=== PATIENT | male | born 1970 | race Caucasian/White ===

== ENCOUNTER 2021-05-06 16:00 | Inpatient (IN) | payer OTHER ==
[~2021-05-06] VITALS: Ht 180.3 cm; Wt 83.6 kg
--- NOTE | 2021-05-06 16:16 | NUR ---
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
--- NOTE | 2021-05-06 16:44 | NUR ---
FIRST CONTACT: SOB and non-productive cough for a few days, +COVID.R-sided CP. pt has not had COVID vaccine. PT WITH STEADY GAIT TO ROOM. POSITIONED TO COMFORT IN BED. ATTACHED TO MONITORS. VSS. COOK.
[2021-05-06] MEDS ORDERED: ASPIRIN 81 MG TABLET CHEW ONE (17:19)
[2021-05-06] MEDS ORDERED: DEXAMETHASONE 4 MG/ML, 1ML ONE (17:19)
--- NOTE | 2021-05-06 17:27 | NUR ---
pt medicated per emar. vss.nadn. no blood cultures per .
[2021-05-06] MEDS ORDERED: DEXAMETHASONE 4 MG/ML, 1ML IVPush ONE (17:30)
[2021-05-06] MEDS ORDERED: ASPIRIN 81 MG TABLET CHEW PO ONE (17:30)
[2021-05-06] MEDS ORDERED: AZITHROMYCIN 500 MG in SODIUM CHLORIDE 0.9% 250 ML IVPB ONE (17:30)
[2021-05-06] MEDS ORDERED: SODIUM CHLORIDE FLUSH 10ML SYR IVF ONE (17:30)
[2021-05-06 17:34] LABS: BASOPHILS % (AUTO) 0 % (0-1); EOSINOPHILS % (AUTO) 0 % (1-7); LYMPHOCYTES % (AUTO) 9 % (22-44); MEAN CORPUSCULAR HEMOGLOBIN 30.8 pg (27.5-34.5); MEAN CORPUSCULAR HGB CONC 35.9 g/dL (33.2-36.2); MEAN PLATELET VOLUME 9.1 fL (7.4-10.4); MONOCYTES % (AUTO) 5 % (2-9); NEUTROPHILS % (AUTO) 87 % (42-75); PLATELET COUNT 158 x10^3/uL (130-400); RED CELL DISTRIBUTION WIDTH 13.1 % (9.4-14.8)
[2021-05-06 17:42] LABS: ALBUMIN 2.7 g/dL (3.4-5.0); ANION GAP 14 mmol/L (5-15); CALCIUM 8.4 mg/dL (8.5-10.1); CHLORIDE 94 mmol/L (98-107); CREATININE 1.12 mg/dL (0.7-1.3)
--- NOTE | 2021-05-06 18:49 | NUR ---
REPORT TO SHENG AMBROCIO.
[2021-05-06] MEDS ORDERED: SODIUM CHLORIDE FLUSH 10ML SYR IVF PRN (19:00)
[2021-05-06] MEDS ORDERED: POLYETHYLENE GLYCOL 17 GM PACKET PO PRN (19:00)
[2021-05-06] MEDS ORDERED: PHARMACY MAY ADJ FOR RENAL FX MC PRN (19:00)
[2021-05-06] MEDS ORDERED: LABETALOL 5MG/ML, 20ML IVPush PRN (19:00)
[2021-05-06] MEDS ORDERED: POTASSIUM CHLORIDE 20 MEQ TAB.ER.PRT PO ONE ×2 (19:00→21:30)
[2021-05-06] MEDS ORDERED: ONDANSETRON 2MG/ML, 2ML IVPush PRN (19:00)
--- NOTE | 2021-05-06 19:18 | NUR ---
RECIEVED REPORT FROM LOLLY SAMAYOA. FIRST CONTACT WITH PT. NADN. SANON. PT RESTING COMFORTABLY ON 6L NC WITH O2 93%. PT AWAITING ADMISSION.
--- NOTE | 2021-05-06 19:24 | NUR ---
1ST ATTEMPT TO CALL REPORT. WILL CALL BACK
--- NOTE | 2021-05-06 19:58 | NUR ---
OXI MASK PLACED ON PT WITH NO CHANGE IN OXIGENATION. PT REPORTS HE IS MORE COMFORTABLE ON NC. PT O2 PRIOR TO ADMISSION 93% ON 6L
[2021-05-06 20:20] VITALS: BP 106/68
[2021-05-06] MEDS: FAMOTIDINE 20 MG TABLET PO SCH (20:27)
[2021-05-06] MEDS: ASCORBIC ACID 500 MG TABLET PO SCH (20:27)
[2021-05-06] MEDS: ENOXAPARIN 40 MG/0.4 ML SQ SCH (20:28)
[2021-05-06] MEDS ORDERED: MELATONIN 5 MG TABLET PO PRN (21:00)
[2021-05-06] MEDS ORDERED: POTASSIUM CHLORIDE 40 MEQ in SODIUM CHLORIDE 0.9% 500 ML IV ONE (21:20)
[2021-05-06] MEDS: DEXAMETHASONE 4 MG/ML, 1ML IVPush SCH (22:09)
[2021-05-07 00:54] VITALS: BP 108/71
[2021-05-07] MEDS: DEXAMETHASONE 4 MG/ML, 1ML IVPush SCH ×3 (05:51→17:48)
[2021-05-07 05:58] LABS: BASOPHILS % (AUTO) 0 % (0-1); EOSINOPHILS % (AUTO) 0 % (1-7); LYMPHOCYTES % (AUTO) 17 % (22-44); MEAN CORPUSCULAR HEMOGLOBIN 30.7 pg (27.5-34.5); MEAN CORPUSCULAR HGB CONC 35.4 g/dL (33.2-36.2); MEAN PLATELET VOLUME 8.9 fL (7.4-10.4); MONOCYTES % (AUTO) 8 % (2-9); NEUTROPHILS % (AUTO) 75 % (42-75); PLATELET COUNT 182 x10^3/uL (130-400); RED BLOOD COUNT 5.08 x10^6/uL (4.38-5.82)
[2021-05-07 06:09] LABS: ANION GAP 13 mmol/L (5-15); CALCIUM 8.3 mg/dL (8.5-10.1); CHLORIDE 100 mmol/L (98-107); CREATININE 1.15 mg/dL (0.7-1.3)
[2021-05-07 07:50] VITALS: BP 111/76
[2021-05-07] MEDS ORDERED: ZINC SULFATE 220 MG CAPSULE PO SCH (09:00)
[2021-05-07] MEDS: FAMOTIDINE 20 MG TABLET PO SCH ×2 (09:18→20:56)
[2021-05-07] MEDS: ASCORBIC ACID 500 MG TABLET PO SCH ×2 (09:18→20:55)
[2021-05-07 09:47] LABS: D-DIMER 0.91 ug/mlFEU (0.00-0.52)
[2021-05-07 10:01] LABS: C-REACTIVE PROTEIN, QUANT 5.5 mg/dL (0.02-0.49)
[2021-05-07] MEDS: INSULIN LISPRO 100 UNITS/ML, PEN SQ-INSULIN SCH ×3 (12:35→20:53)
[2021-05-07 13:27] VITALS: BP 116/74
[2021-05-07] MEDS: CEFTRIAXONE 2 GM in DEXTROSE 5% 50 ML IVPB SCH (14:38)
[2021-05-07 14:40] LABS: ALANINE AMINOTRANSFERASE 109 U/L (12-78); ALBUMIN 2.7 g/dL (3.4-5.0); ANION GAP 21 mmol/L (5-15); CALCIUM 9.1 mg/dL (8.5-10.1); CHLORIDE 101 mmol/L (98-107)
[2021-05-07 14:42] LABS: ALKALINE PHOSPHATASE 70 U/L (45-117); BILIRUBIN,TOTAL 1.1 mg/dL (0.2-1.0); TOTAL PROTEIN 7.5 g/dL (6.4-8.2)
[2021-05-07] MEDS: INSULIN GLARGINE 100 UNITS/ML, PEN SQ-INSULIN SCH ×2 (15:15→20:54)
[2021-05-07] MEDS ORDERED: REMDESIVIR 200 MG in SODIUM CHLORIDE 0.9% 250 ML IVPB ONE (16:00)
[2021-05-07] MEDS ORDERED: OMNIPAQUE 350 MG/ML, 100ML BOTTLE ONE (17:38)
[2021-05-07] MEDS: MELATONIN 5 MG TABLET PO SCH (20:55)
[2021-05-07] MEDS: ENOXAPARIN 40 MG/0.4 ML SQ SCH (20:56)
[2021-05-07] MEDS: THIAMINE 100MG TABLET PO SCH (20:56)
[2021-05-07] MEDS: DOXYCYCLINE 50 MG/5 ML ORAL SUSP PO SCH (20:56)
[2021-05-07] MEDS ORDERED: INSULIN LISPRO 100 UNITS/ML, PEN SQ-INSULIN ONE (21:00)
[2021-05-07 21:49] VITALS: BP 123/80
[2021-05-08] MEDS: DEXAMETHASONE 4 MG/ML, 1ML IVPush SCH ×5 (00:04→23:33)
[2021-05-08 06:28] VITALS: BP 112/75
[2021-05-08 07:44] LABS: BASOPHILS % (AUTO) 0 % (0-1); EOSINOPHILS % (AUTO) 0 % (1-7); LYMPHOCYTES % (AUTO) 9 % (22-44); MEAN CORPUSCULAR HEMOGLOBIN 31.1 pg (27.5-34.5); MEAN CORPUSCULAR HGB CONC 36.4 g/dL (33.2-36.2); MEAN PLATELET VOLUME 8.7 fL (7.4-10.4); MONOCYTES % (AUTO) 7 % (2-9); NEUTROPHILS % (AUTO) 84 % (42-75); PLATELET COUNT 224 x10^3/uL (130-400); RED BLOOD COUNT 5.29 x10^6/uL (4.38-5.82); RED CELL DISTRIBUTION WIDTH 12.9 % (9.4-14.8)
[2021-05-08 07:55] LABS: ALBUMIN 2.5 g/dL (3.4-5.0); ANION GAP 11 mmol/L (5-15); CALCIUM 9.1 mg/dL (8.5-10.1); CHLORIDE 106 mmol/L (98-107)
[2021-05-08 08:00] LABS: ALANINE AMINOTRANSFERASE 83 U/L (12-78); ALKALINE PHOSPHATASE 64 U/L (45-117); BILIRUBIN,TOTAL 0.9 mg/dL (0.2-1.0); CREATININE 0.85 mg/dL (0.7-1.3); TOTAL PROTEIN 6.6 g/dL (6.4-8.2)
[2021-05-08] MEDS ORDERED: INSULIN GLARGINE 100 UNITS/ML, PEN SQ-INSULIN SCH (09:00)
[2021-05-08] MEDS: INSULIN LISPRO 100 UNITS/ML, PEN SQ-INSULIN SCH ×4 (09:16→22:06)
[2021-05-08] MEDS: THIAMINE 100MG TABLET PO SCH ×2 (09:17→21:56)
[2021-05-08] MEDS: ASCORBIC ACID 500 MG TABLET PO SCH ×2 (09:17→21:56)
[2021-05-08] MEDS: ZINC SULFATE 220 MG CAPSULE PO SCH (09:17)
[2021-05-08] MEDS: DOXYCYCLINE 50 MG/5 ML ORAL SUSP PO SCH ×2 (09:17→21:56)
[2021-05-08] MEDS: CHOLECALCIFEROL 1,000 UNIT TABLET PO SCH (09:18)
[2021-05-08] MEDS: FAMOTIDINE 20 MG TABLET PO SCH ×2 (09:18→21:56)
[2021-05-08 13:11] VITALS: BP 137/72
[2021-05-08] MEDS: CEFTRIAXONE 2 GM in DEXTROSE 5% 50 ML IVPB SCH (15:10)
[2021-05-08] MEDS: REMDESIVIR 100 MG in SODIUM CHLORIDE 0.9% 250 ML IVPB SCH (16:18)
[2021-05-08 21:01] VITALS: BP 112/72
[2021-05-08] MEDS: MELATONIN 5 MG TABLET PO SCH (21:56)
[2021-05-08] MEDS: ENOXAPARIN 40 MG/0.4 ML SQ SCH (21:56)
[2021-05-09 02:17] VITALS: BP 112/66
[2021-05-09] MEDS: DEXAMETHASONE 4 MG/ML, 1ML IVPush SCH ×4 (05:51→23:56)
[2021-05-09 07:01] LABS: ALBUMIN 2.4 g/dL (3.4-5.0); ANION GAP 11 mmol/L (5-15); CHLORIDE 109 mmol/L (98-107)
[2021-05-09 07:06] LABS: ALANINE AMINOTRANSFERASE 76 U/L (12-78); ALKALINE PHOSPHATASE 67 U/L (45-117); BILIRUBIN,TOTAL 1.1 mg/dL (0.2-1.0); CREATININE 0.73 mg/dL (0.7-1.3); TOTAL PROTEIN 6.2 g/dL (6.4-8.2)
[2021-05-09 08:00] VITALS: BP 115/68
[2021-05-09] MEDS ORDERED: POTASSIUM CHLORIDE 20 MEQ TAB.ER.PRT PO ONE (08:00)
[2021-05-09] MEDS: DOXYCYCLINE 50 MG/5 ML ORAL SUSP PO SCH ×2 (08:50→20:56)
[2021-05-09] MEDS: ASCORBIC ACID 500 MG TABLET PO SCH ×2 (08:50→20:56)
[2021-05-09] MEDS: THIAMINE 100MG TABLET PO SCH ×2 (08:50→20:56)
[2021-05-09] MEDS: FAMOTIDINE 20 MG TABLET PO SCH ×2 (08:50→20:56)
[2021-05-09] MEDS: ZINC SULFATE 220 MG CAPSULE PO SCH (08:50)
[2021-05-09] MEDS: CHOLECALCIFEROL 1,000 UNIT TABLET PO SCH (08:51)
[2021-05-09] MEDS: INSULIN LISPRO 100 UNITS/ML, PEN SQ-INSULIN SCH ×4 (08:54→20:56)
[2021-05-09] MEDS: INSULIN GLARGINE 100 UNITS/ML, PEN SQ-INSULIN SCH ×2 (08:54→20:55)
[2021-05-09 14:58] VITALS: BP 128/77
[2021-05-09] MEDS: CEFTRIAXONE 2 GM in DEXTROSE 5% 50 ML IVPB SCH (15:01)
[2021-05-09] MEDS: REMDESIVIR 100 MG in SODIUM CHLORIDE 0.9% 250 ML IVPB SCH (16:38)
[2021-05-09] MEDS: GUAIFENESIN/DM 200-20MG, 10ML UDC PO SCH ×2 (16:53→23:56)
[2021-05-09 20:46] VITALS: BP 127/64
[2021-05-09] MEDS: GUAIFENESIN/COD200MG-20MG/10ML LIQUID PO SCH (20:56)
[2021-05-09] MEDS: ENOXAPARIN 40 MG/0.4 ML SQ SCH (20:58)
[2021-05-09] MEDS: MELATONIN 5 MG TABLET PO SCH (21:00)
[2021-05-10 01:10] VITALS: BP 112/77
[2021-05-10] MEDS: GUAIFENESIN/DM 200-20MG, 10ML UDC PO SCH ×4 (05:00→23:22)
[2021-05-10] MEDS: DEXAMETHASONE 4 MG/ML, 1ML IVPush SCH ×3 (05:23→20:34)
[2021-05-10] MEDS: GUAIFENESIN/COD200MG-20MG/10ML LIQUID PO SCH ×4 (05:23→20:34)
[2021-05-10 06:39] VITALS: BP 123/74
[2021-05-10 06:57] LABS: D-DIMER 3.2 ug/mlFEU (0.00-0.52)
[2021-05-10 06:59] LABS: ALBUMIN 2.4 g/dL (3.4-5.0); ANION GAP 8 mmol/L (5-15); CALCIUM 8.6 mg/dL (8.5-10.1); CHLORIDE 112 mmol/L (98-107)
[2021-05-10 07:09] LABS: BASOPHILS % (AUTO) 0 % (0-1); EOSINOPHILS % (AUTO) 0 % (1-7); LYMPHOCYTES % (AUTO) 4 % (22-44); MEAN CORPUSCULAR HEMOGLOBIN 30.2 pg (27.5-34.5); MEAN CORPUSCULAR HGB CONC 34.8 g/dL (33.2-36.2); MEAN PLATELET VOLUME 8.9 fL (7.4-10.4); MONOCYTES % (AUTO) 4 % (2-9); NEUTROPHILS % (AUTO) 91 % (42-75); PLATELET COUNT 266 x10^3/uL (130-400); RED BLOOD COUNT 5.36 x10^6/uL (4.38-5.82); RED CELL DISTRIBUTION WIDTH 13.2 % (9.4-14.8)
[2021-05-10 07:14] LABS: ALANINE AMINOTRANSFERASE 79 U/L (12-78); ALKALINE PHOSPHATASE 82 U/L (45-117); BILIRUBIN,TOTAL 1.2 mg/dL (0.2-1.0); CREATININE 0.77 mg/dL (0.7-1.3); TOTAL PROTEIN 6.3 g/dL (6.4-8.2)
[2021-05-10] MEDS: ASCORBIC ACID 500 MG TABLET PO SCH ×2 (08:13→20:34)
[2021-05-10] MEDS: THIAMINE 100MG TABLET PO SCH ×2 (08:14→20:34)
[2021-05-10] MEDS: CHOLECALCIFEROL 1,000 UNIT TABLET PO SCH (08:14)
[2021-05-10] MEDS: FAMOTIDINE 20 MG TABLET PO SCH ×2 (08:14→20:34)
[2021-05-10] MEDS: INSULIN LISPRO 100 UNITS/ML, PEN SQ-INSULIN SCH ×4 (08:16→20:33)
[2021-05-10] MEDS: INSULIN GLARGINE 100 UNITS/ML, PEN SQ-INSULIN SCH ×2 (08:16→20:32)
[2021-05-10] MEDS: ZINC SULFATE 220 MG CAPSULE PO SCH (10:19)
[2021-05-10] MEDS: DOXYCYCLINE 50 MG/5 ML ORAL SUSP PO SCH ×2 (10:19→20:31)
[2021-05-10 12:25] VITALS: BP 125/73
[2021-05-10] MEDS: CEFTRIAXONE 2 GM in DEXTROSE 5% 50 ML IVPB SCH (14:36)
[2021-05-10] MEDS: REMDESIVIR 100 MG in SODIUM CHLORIDE 0.9% 250 ML IVPB SCH (16:58)
[2021-05-10 20:30] VITALS: BP 137/84
[2021-05-10] MEDS: ENOXAPARIN 40 MG/0.4 ML SQ SCH (20:33)
[2021-05-10] MEDS: MELATONIN 5 MG TABLET PO SCH (20:34)
[2021-05-11] MEDS: DEXAMETHASONE 4 MG/ML, 1ML IVPush SCH ×2 (01:35→08:47)
[2021-05-11 01:46] VITALS: BP 121/78
[2021-05-11 04:13] LABS: CALCIUM 8.2 mg/dL (8.5-10.1); CHLORIDE 109 mmol/L (98-107)
[2021-05-11 04:18] LABS: ALANINE AMINOTRANSFERASE 81 U/L (12-78); ALKALINE PHOSPHATASE 73 U/L (45-117); ANION GAP 6 mmol/L (5-15); BILIRUBIN,TOTAL 0.9 mg/dL (0.2-1.0); CREATININE 0.59 mg/dL (0.7-1.3); TOTAL PROTEIN 5.8 g/dL (6.4-8.2)
[2021-05-11] MEDS: GUAIFENESIN/DM 200-20MG, 10ML UDC PO SCH (05:46)
[2021-05-11] MEDS: GUAIFENESIN/COD200MG-20MG/10ML LIQUID PO SCH ×4 (05:46→20:29)
[2021-05-11 08:36] VITALS: BP 131/75
[2021-05-11] MEDS: CHOLECALCIFEROL 1,000 UNIT TABLET PO SCH (08:46)
[2021-05-11] MEDS: THIAMINE 100MG TABLET PO SCH ×2 (08:47→20:28)
[2021-05-11] MEDS: ASCORBIC ACID 500 MG TABLET PO SCH ×2 (08:47→20:28)
[2021-05-11] MEDS: DOXYCYCLINE 50 MG/5 ML ORAL SUSP PO SCH (08:47)
[2021-05-11] MEDS: FAMOTIDINE 20 MG TABLET PO SCH ×2 (08:48→20:28)
[2021-05-11] MEDS: INSULIN GLARGINE 100 UNITS/ML, PEN SQ-INSULIN SCH (08:51)
[2021-05-11] MEDS: INSULIN LISPRO 100 UNITS/ML, PEN SQ-INSULIN SCH ×4 (08:53→20:27)
[2021-05-11 14:26] VITALS: BP 135/74
[2021-05-11] MEDS: CEFTRIAXONE 2 GM in DEXTROSE 5% 50 ML IVPB SCH (14:45)
[2021-05-11] MEDS: ZINC SULFATE 220 MG CAPSULE PO SCH (14:45)
[2021-05-11] MEDS: REMDESIVIR 100 MG in SODIUM CHLORIDE 0.9% 250 ML IVPB SCH (16:05)
[2021-05-11 19:27] VITALS: BP 132/81
[2021-05-11] MEDS: DOXYCYCLINE 100MG TABLET PO SCH (20:28)
[2021-05-11] MEDS: MELATONIN 5 MG TABLET PO SCH (20:28)
[2021-05-11] MEDS: ENOXAPARIN 40 MG/0.4 ML SQ SCH (20:29)
[2021-05-11] MEDS: DEXTROMETHORPHAN 30 MG/5 ML ORAL SOL PO SCH (20:29)
[2021-05-11] MEDS ORDERED: INSULIN GLARGINE 100 UNITS/ML, PEN SQ-INSULIN SCH (21:00)
[2021-05-12 00:55] VITALS: BP 143/92
[2021-05-12] MEDS: GUAIFENESIN/COD200MG-20MG/10ML LIQUID PO SCH ×4 (05:20→22:29)
[2021-05-12] MEDS: INSULIN LISPRO 100 UNITS/ML, PEN SQ-INSULIN SCH ×4 (07:00→22:31)
[2021-05-12 08:30] VITALS: BP 136/76
[2021-05-12] MEDS: CHOLECALCIFEROL 1,000 UNIT TABLET PO SCH (09:00)
[2021-05-12 09:15] LABS: D-DIMER 3.71 ug/mlFEU (0.00-0.52)
[2021-05-12 09:30] LABS: C-REACTIVE PROTEIN, QUANT 1.7 mg/dL (0.02-0.49)
[2021-05-12] MEDS: FAMOTIDINE 20 MG TABLET PO SCH ×2 (09:38→22:30)
[2021-05-12] MEDS: ASCORBIC ACID 500 MG TABLET PO SCH ×2 (09:38→22:29)
[2021-05-12] MEDS: DOXYCYCLINE 100MG TABLET PO SCH ×2 (09:39→22:30)
[2021-05-12] MEDS: THIAMINE 100MG TABLET PO SCH ×2 (09:39→22:30)
[2021-05-12] MEDS: DEXAMETHASONE 4 MG/ML, 1ML IVPush SCH (09:39)
[2021-05-12] MEDS: ZINC SULFATE 220 MG CAPSULE PO SCH (09:39)
[2021-05-12] MEDS: DEXTROMETHORPHAN 30 MG/5 ML ORAL SOL PO SCH ×2 (09:40→22:30)
[2021-05-12] MEDS: INSULIN GLARGINE 100 UNITS/ML, PEN SQ-INSULIN SCH ×2 (09:41→22:32)
[2021-05-12 14:12] VITALS: BP 150/79
[2021-05-12] MEDS: CEFTRIAXONE 2 GM in DEXTROSE 5% 50 ML IVPB SCH (15:39)
[2021-05-12] MEDS: REMDESIVIR 100 MG in SODIUM CHLORIDE 0.9% 250 ML IVPB SCH (16:37)
[2021-05-12 20:09] VITALS: BP 169/89
[2021-05-12] MEDS ORDERED: ASCORBIC ACID 250 MG TAB ONE (22:15)
[2021-05-12] MEDS: ENOXAPARIN 40 MG/0.4 ML SQ SCH (22:28)
[2021-05-12] MEDS: MELATONIN 5 MG TABLET PO SCH (22:30)
[2021-05-13 01:53] VITALS: BP 120/80
[2021-05-13 06:02] LABS: CHLORIDE 109 mmol/L (98-107)
[2021-05-13] MEDS: GUAIFENESIN/COD200MG-20MG/10ML LIQUID PO SCH ×4 (06:07→22:05)
[2021-05-13 06:09] LABS: ALANINE AMINOTRANSFERASE 98 U/L (12-78); ALBUMIN 2.2 g/dL (3.4-5.0); ALKALINE PHOSPHATASE 88 U/L (45-117); ANION GAP 6 mmol/L (5-15); CALCIUM 8.4 mg/dL (8.5-10.1); CREATININE 0.67 mg/dL (0.7-1.3); TOTAL PROTEIN 6.3 g/dL (6.4-8.2)
[2021-05-13] MEDS: INSULIN LISPRO 100 UNITS/ML, PEN SQ-INSULIN SCH ×4 (07:00→22:07)
[2021-05-13 08:24] VITALS: BP 136/80
[2021-05-13] MEDS: CHOLECALCIFEROL 1,000 UNIT TABLET PO SCH (09:00)
[2021-05-13] MEDS: ASCORBIC ACID 500 MG TABLET PO SCH ×2 (10:53→22:05)
[2021-05-13] MEDS: THIAMINE 100MG TABLET PO SCH ×2 (10:53→22:06)
[2021-05-13] MEDS: FAMOTIDINE 20 MG TABLET PO SCH ×2 (10:53→22:06)
[2021-05-13] MEDS: DEXAMETHASONE 4 MG/ML, 1ML IVPush SCH (10:53)
[2021-05-13] MEDS: DOXYCYCLINE 100MG TABLET PO SCH ×2 (10:53→22:06)
[2021-05-13] MEDS: DEXTROMETHORPHAN 30 MG/5 ML ORAL SOL PO SCH ×2 (13:03→22:05)
[2021-05-13] MEDS: ZINC SULFATE 220 MG CAPSULE PO SCH (13:03)
[2021-05-13] MEDS: INSULIN GLARGINE 100 UNITS/ML, PEN SQ-INSULIN SCH ×2 (13:04→22:07)
[2021-05-13 14:38] VITALS: BP 89/64
[2021-05-13 14:52] VITALS: BP 128/83
[2021-05-13] MEDS: CEFTRIAXONE 2 GM in DEXTROSE 5% 50 ML IVPB SCH (14:54)
[2021-05-13] MEDS: REMDESIVIR 100 MG in SODIUM CHLORIDE 0.9% 250 ML IVPB SCH (17:07)
[2021-05-13 20:34] VITALS: BP 127/81
[2021-05-13] MEDS: MELATONIN 5 MG TABLET PO SCH (22:06)
[2021-05-13] MEDS: ENOXAPARIN 40 MG/0.4 ML SQ SCH (22:06)
[2021-05-14 02:26] VITALS: BP 120/80
[2021-05-14] MEDS: GUAIFENESIN/COD200MG-20MG/10ML LIQUID PO SCH ×4 (05:38→21:06)
[2021-05-14 06:14] LABS: CHLORIDE 106 mmol/L (98-107)
[2021-05-14 06:25] LABS: ALANINE AMINOTRANSFERASE 82 U/L (12-78); ALBUMIN 1.8 g/dL (3.4-5.0); ALKALINE PHOSPHATASE 84 U/L (45-117); BILIRUBIN,TOTAL 0.9 mg/dL (0.2-1.0); TOTAL PROTEIN 5.4 g/dL (6.4-8.2)
[2021-05-14 06:51] LABS: ANION GAP 5 mmol/L (5-15); CALCIUM 8.3 mg/dL (8.5-10.1); CREATININE 0.61 mg/dL (0.7-1.3)
[2021-05-14] MEDS: INSULIN LISPRO 100 UNITS/ML, PEN SQ-INSULIN SCH ×4 (07:00→21:10)
[2021-05-14 08:31] VITALS: BP 129/82
[2021-05-14] MEDS: FAMOTIDINE 20 MG TABLET PO SCH ×2 (08:38→21:06)
[2021-05-14] MEDS: DEXAMETHASONE 4 MG/ML, 1ML IVPush SCH (08:38)
[2021-05-14] MEDS: ASCORBIC ACID 500 MG TABLET PO SCH ×2 (08:38→21:06)
[2021-05-14] MEDS: DOXYCYCLINE 100MG TABLET PO SCH ×2 (08:38→21:06)
[2021-05-14] MEDS: CHOLECALCIFEROL 1,000 UNIT TABLET PO SCH (08:39)
[2021-05-14] MEDS: THIAMINE 100MG TABLET PO SCH ×2 (08:39→21:06)
[2021-05-14] MEDS: FUROSEMIDE 20 MG/2 ML IV SCH ×2 (08:39→16:50)
[2021-05-14] MEDS: INSULIN GLARGINE 100 UNITS/ML, PEN SQ-INSULIN SCH ×2 (08:45→21:10)
[2021-05-14] MEDS: DEXTROMETHORPHAN 30 MG/5 ML ORAL SOL PO SCH ×2 (08:46→21:06)
[2021-05-14] MEDS: ZINC SULFATE 220 MG CAPSULE PO SCH (11:21)
[2021-05-14 14:05] VITALS: BP 136/78
[2021-05-14] MEDS: CEFTRIAXONE 2 GM in DEXTROSE 5% 50 ML IVPB SCH (14:56)
[2021-05-14] MEDS: REMDESIVIR 100 MG in SODIUM CHLORIDE 0.9% 250 ML IVPB SCH (16:50)
[2021-05-14 18:51] VITALS: BP 103/64
[2021-05-14] MEDS: MELATONIN 5 MG TABLET PO SCH (21:06)
[2021-05-14] MEDS: ENOXAPARIN 40 MG/0.4 ML SQ SCH (21:08)
[2021-05-15 01:47] VITALS: BP 110/72
[2021-05-15] MEDS: GUAIFENESIN/COD200MG-20MG/10ML LIQUID PO SCH ×4 (04:56→21:22)
[2021-05-15] MEDS: INSULIN LISPRO 100 UNITS/ML, PEN SQ-INSULIN SCH ×4 (07:00→21:25)
[2021-05-15 07:43] VITALS: BP 109/65
[2021-05-15] MEDS: FUROSEMIDE 20 MG/2 ML IV SCH ×2 (08:15→16:31)
[2021-05-15 08:44] LABS: MEAN CORPUSCULAR HEMOGLOBIN 30.3 pg (27.5-34.5); MEAN CORPUSCULAR HGB CONC 34.1 g/dL (33.2-36.2); MEAN PLATELET VOLUME 8.6 fL (7.4-10.4); PLATELET COUNT 360 x10^3/uL (130-400); RED BLOOD COUNT 5.53 x10^6/uL (4.38-5.82); RED CELL DISTRIBUTION WIDTH 13.2 % (9.4-14.8)
[2021-05-15 08:55] LABS: ALBUMIN 2.4 g/dL (3.4-5.0); ANION GAP 9 mmol/L (5-15); CALCIUM 8.9 mg/dL (8.5-10.1); CHLORIDE 102 mmol/L (98-107)
[2021-05-15 08:56] LABS: ALBUMIN 2.4 g/dL (3.4-5.0); ANION GAP 7 mmol/L (5-15); CALCIUM 9.3 mg/dL (8.5-10.1); CHLORIDE 102 mmol/L (98-107)
[2021-05-15 08:57] LABS: CREATININE 0.89 mg/dL (0.7-1.3)
[2021-05-15 08:58] LABS: ALANINE AMINOTRANSFERASE 111 U/L (12-78); ALKALINE PHOSPHATASE 92 U/L (45-117); BILIRUBIN,TOTAL 1.4 mg/dL (0.2-1.0); CREATININE 0.87 mg/dL (0.7-1.3); TOTAL PROTEIN 6.5 g/dL (6.4-8.2)
[2021-05-15 09:12] LABS: BAND#(MANUAL) 0.16 x10^3/uL; BANDS%(MANUAL) 1 % (0-7); LYMPHS% (MANUAL) 25 % (22-44); METAMYELOCYTES# (MANUAL) 0.16 x10^3/uL (0-0); METAMYELOCYTES% (MANUAL) 1 % (0-1); MONOS#(MANUAL) 1.15 x10^3/uL (0.3-2.7); MONOS% (MANUAL) 7 % (2-9); MYELOCYTES# (MANUAL) 0.16 x10^3/uL (0-0); MYELOCYTES% (MANUAL) 1 % (0-0); SEG#(MANUAL) 10.66 x10^3/uL (1.8-6.8); SEGS% (MANUAL) 65 % (42-75)
[2021-05-15 09:13] LABS: <PLATELET ESTIMATE> ADEQUATE; <PLT MORPHOLOGY> NORMAL PLT MORPH; <RBC MORPHOLOGY> NORMAL
[2021-05-15] MEDS: FAMOTIDINE 20 MG TABLET PO SCH ×2 (10:28→21:22)
[2021-05-15] MEDS: ASCORBIC ACID 500 MG TABLET PO SCH ×2 (10:28→21:21)
[2021-05-15] MEDS: THIAMINE 100MG TABLET PO SCH ×2 (10:28→21:22)
[2021-05-15] MEDS: CHOLECALCIFEROL 1,000 UNIT TABLET PO SCH (10:28)
[2021-05-15] MEDS: DOXYCYCLINE 100MG TABLET PO SCH ×2 (10:28→21:21)
[2021-05-15] MEDS: DEXTROMETHORPHAN 30 MG/5 ML ORAL SOL PO SCH ×2 (10:29→21:22)
[2021-05-15] MEDS: DEXAMETHASONE 4 MG/ML, 1ML IVPush SCH (10:30)
[2021-05-15] MEDS: INSULIN GLARGINE 100 UNITS/ML, PEN SQ-INSULIN SCH ×2 (10:42→21:25)
[2021-05-15] MEDS: ZINC SULFATE 220 MG CAPSULE PO SCH (10:46)
[2021-05-15 14:00] VITALS: BP 110/66
[2021-05-15] MEDS: CEFTRIAXONE 2 GM in DEXTROSE 5% 50 ML IVPB SCH (15:49)
[2021-05-15] MEDS: REMDESIVIR 100 MG in SODIUM CHLORIDE 0.9% 250 ML IVPB SCH (16:28)
[2021-05-15 19:58] VITALS: BP 113/66
[2021-05-15] MEDS: MELATONIN 5 MG TABLET PO SCH (21:00)
[2021-05-15] MEDS: ENOXAPARIN 40 MG/0.4 ML SQ SCH (21:22)
[2021-05-16 01:21] VITALS: BP 111/71
[2021-05-16 06:21] LABS: CHLORIDE 101 mmol/L (98-107)
[2021-05-16 06:27] LABS: ALANINE AMINOTRANSFERASE 89 U/L (12-78); ALBUMIN 2.1 g/dL (3.4-5.0); ALKALINE PHOSPHATASE 86 U/L (45-117); ANION GAP 5 mmol/L (5-15); CALCIUM 8.6 mg/dL (8.5-10.1); CREATININE 0.83 mg/dL (0.7-1.3)
[2021-05-16] MEDS: GUAIFENESIN/COD200MG-20MG/10ML LIQUID PO SCH ×4 (06:43→21:20)
[2021-05-16] MEDS: INSULIN LISPRO 100 UNITS/ML, PEN SQ-INSULIN SCH ×4 (07:00→21:21)
[2021-05-16 08:34] VITALS: BP 103/66
[2021-05-16] MEDS: FUROSEMIDE 20 MG/2 ML IV SCH ×2 (08:38→17:07)
[2021-05-16] MEDS: FAMOTIDINE 20 MG TABLET PO SCH ×2 (08:39→21:20)
[2021-05-16] MEDS: DOXYCYCLINE 100MG TABLET PO SCH ×2 (08:39→21:20)
[2021-05-16] MEDS: ASCORBIC ACID 500 MG TABLET PO SCH ×2 (08:39→21:20)
[2021-05-16] MEDS: DEXAMETHASONE 4 MG/ML, 1ML IVPush SCH (08:39)
[2021-05-16] MEDS: CHOLECALCIFEROL 1,000 UNIT TABLET PO SCH (08:39)
[2021-05-16] MEDS: ZINC SULFATE 220 MG CAPSULE PO SCH (08:39)
[2021-05-16] MEDS: THIAMINE 100MG TABLET PO SCH ×2 (08:39→21:20)
[2021-05-16] MEDS: DEXTROMETHORPHAN 30 MG/5 ML ORAL SOL PO SCH ×2 (08:40→21:20)
[2021-05-16] MEDS: INSULIN GLARGINE 100 UNITS/ML, PEN SQ-INSULIN SCH ×2 (10:12→21:21)
[2021-05-16 13:53] VITALS: BP 112/73
[2021-05-16] MEDS: CEFTRIAXONE 2 GM in DEXTROSE 5% 50 ML IVPB SCH (14:33)
[2021-05-16] MEDS: REMDESIVIR 100 MG in SODIUM CHLORIDE 0.9% 250 ML IVPB SCH (17:07)
[2021-05-16 19:34] VITALS: BP 133/71
[2021-05-16] MEDS: ENOXAPARIN 40 MG/0.4 ML SQ SCH (21:19)
[2021-05-16] MEDS: MELATONIN 5 MG TABLET PO SCH (21:20)
[2021-05-17 02:24] VITALS: BP 96/67
[2021-05-17] MEDS: GUAIFENESIN/COD200MG-20MG/10ML LIQUID PO SCH ×4 (05:10→21:55)
[2021-05-17 05:41] LABS: BASOPHILS % (AUTO) 0 % (0-1); EOSINOPHILS % (AUTO) 1 % (1-7); LYMPHOCYTES % (AUTO) 18 % (22-44); MEAN CORPUSCULAR HEMOGLOBIN 30.7 pg (27.5-34.5); MEAN CORPUSCULAR HGB CONC 35.1 g/dL (33.2-36.2); MEAN PLATELET VOLUME 8.8 fL (7.4-10.4); MONOCYTES % (AUTO) 9 % (2-9); NEUTROPHILS % (AUTO) 71 % (42-75); PLATELET COUNT 252 x10^3/uL (130-400); RED BLOOD COUNT 4.99 x10^6/uL (4.38-5.82); RED CELL DISTRIBUTION WIDTH 12.9 % (9.4-14.8)
[2021-05-17 06:03] LABS: ANION GAP 4 mmol/L (5-15); CALCIUM 8.6 mg/dL (8.5-10.1); CHLORIDE 103 mmol/L (98-107)
[2021-05-17 06:04] LABS: CREATININE 0.87 mg/dL (0.7-1.3)
[2021-05-17 07:39] VITALS: BP 99/73
[2021-05-17] MEDS: INSULIN LISPRO 100 UNITS/ML, PEN SQ-INSULIN SCH ×4 (09:12→21:55)
[2021-05-17] MEDS: INSULIN GLARGINE 100 UNITS/ML, PEN SQ-INSULIN SCH ×2 (09:13→21:55)
[2021-05-17] MEDS: DEXAMETHASONE 4 MG/ML, 1ML IVPush SCH (09:13)
[2021-05-17] MEDS: THIAMINE 100MG TABLET PO SCH ×2 (09:14→21:55)
[2021-05-17] MEDS: FAMOTIDINE 20 MG TABLET PO SCH ×2 (09:14→21:55)
[2021-05-17] MEDS: CHOLECALCIFEROL 1,000 UNIT TABLET PO SCH (09:14)
[2021-05-17] MEDS: DOXYCYCLINE 100MG TABLET PO SCH (09:14)
[2021-05-17] MEDS: FUROSEMIDE 20 MG/2 ML IV SCH ×2 (09:15→16:53)
[2021-05-17] MEDS: ASCORBIC ACID 500 MG TABLET PO SCH ×2 (09:15→21:55)
[2021-05-17] MEDS: DEXTROMETHORPHAN 30 MG/5 ML ORAL SOL PO SCH ×2 (09:28→21:55)
[2021-05-17] MEDS ORDERED: OMNIPAQUE 350 MG/ML, 100ML BOTTLE ONE (09:45)
[2021-05-17] MEDS: ZINC SULFATE 220 MG CAPSULE PO SCH (11:51)
[2021-05-17 14:17] VITALS: BP 102/68
[2021-05-17] MEDS: ENOXAPARIN 80 MG/0.8 ML SQ SCH (14:36)
[2021-05-17] MEDS ORDERED: RIVAROXABAN 15 MG TABLET PO SCH (17:00)
[2021-05-17 21:55] VITALS: BP 130/70
[2021-05-17] MEDS: MELATONIN 5 MG TABLET PO SCH (21:55)
[2021-05-18] MEDS: ENOXAPARIN 80 MG/0.8 ML SQ SCH ×2 (02:58→13:48)
[2021-05-18 03:00] VITALS: BP 110/70
[2021-05-18 06:14] LABS: BASOPHILS % (AUTO) 1 % (0-1); EOSINOPHILS % (AUTO) 1 % (1-7); LYMPHOCYTES % (AUTO) 19 % (22-44); MEAN CORPUSCULAR HEMOGLOBIN 30.9 pg (27.5-34.5); MEAN CORPUSCULAR HGB CONC 35.1 g/dL (33.2-36.2); MEAN PLATELET VOLUME 9.6 fL (7.4-10.4); MONOCYTES % (AUTO) 8 % (2-9); NEUTROPHILS % (AUTO) 72 % (42-75); PLATELET COUNT 264 x10^3/uL (130-400); RED BLOOD COUNT 4.97 x10^6/uL (4.38-5.82); RED CELL DISTRIBUTION WIDTH 12.9 % (9.4-14.8)
[2021-05-18 06:18] LABS: HCT (SEDRATE) 43.8 % (39.2-51.8)
[2021-05-18 06:26] LABS: CHLORIDE 100 mmol/L (98-107)
[2021-05-18 06:39] LABS: ALANINE AMINOTRANSFERASE 81 U/L (12-78); ALKALINE PHOSPHATASE 82 U/L (45-117); ANION GAP 3 mmol/L (5-15); BILIRUBIN,TOTAL 1.1 mg/dL (0.2-1.0); C-REACTIVE PROTEIN, QUANT 0.43 mg/dL (0.02-0.49); CALCIUM 8.5 mg/dL (8.5-10.1); CREATININE 0.78 mg/dL (0.7-1.3); TOTAL PROTEIN 5.7 g/dL (6.4-8.2)
[2021-05-18] MEDS: INSULIN LISPRO 100 UNITS/ML, PEN SQ-INSULIN SCH ×4 (07:00→21:47)
[2021-05-18] MEDS: GUAIFENESIN/COD200MG-20MG/10ML LIQUID PO SCH ×4 (07:47→21:45)
[2021-05-18] MEDS: DEXAMETHASONE 4 MG/ML, 1ML IVPush SCH (07:47)
[2021-05-18] MEDS: ASCORBIC ACID 500 MG TABLET PO SCH ×2 (07:48→21:45)
[2021-05-18] MEDS: FUROSEMIDE 20 MG/2 ML IV SCH ×2 (07:48→16:06)
[2021-05-18] MEDS: THIAMINE 100MG TABLET PO SCH ×2 (07:48→21:44)
[2021-05-18] MEDS: FAMOTIDINE 20 MG TABLET PO SCH ×2 (07:48→21:45)
[2021-05-18] MEDS: CHOLECALCIFEROL 1,000 UNIT TABLET PO SCH (07:48)
[2021-05-18 07:53] VITALS: BP 115/69
[2021-05-18] MEDS: ZINC SULFATE 220 MG CAPSULE PO SCH (10:40)
[2021-05-18] MEDS: DEXTROMETHORPHAN 30 MG/5 ML ORAL SOL PO SCH ×2 (10:40→22:01)
[2021-05-18 13:49] VITALS: BP 101/71
[2021-05-18 20:23] VITALS: BP 113/71
[2021-05-18] MEDS: MELATONIN 5 MG TABLET PO SCH (21:45)
[2021-05-18] MEDS: INSULIN GLARGINE 100 UNITS/ML, PEN SQ-INSULIN SCH (21:46)
[2021-05-19 02:27] VITALS: BP 103/69
[2021-05-19] MEDS: ENOXAPARIN 80 MG/0.8 ML SQ SCH (02:27)
[2021-05-19] MEDS: GUAIFENESIN/COD200MG-20MG/10ML LIQUID PO SCH ×4 (06:28→21:00)
[2021-05-19] MEDS: INSULIN LISPRO 100 UNITS/ML, PEN SQ-INSULIN SCH ×4 (07:00→21:14)
[2021-05-19 08:42] VITALS: BP 114/75
[2021-05-19] MEDS: FAMOTIDINE 20 MG TABLET PO SCH ×2 (08:56→21:11)
[2021-05-19] MEDS: ZINC SULFATE 220 MG CAPSULE PO SCH (08:56)
[2021-05-19] MEDS: ASCORBIC ACID 500 MG TABLET PO SCH ×2 (08:56→21:11)
[2021-05-19] MEDS: THIAMINE 100MG TABLET PO SCH ×2 (08:57→21:11)
[2021-05-19] MEDS: CHOLECALCIFEROL 1,000 UNIT TABLET PO SCH (08:57)
[2021-05-19] MEDS: DEXAMETHASONE 4 MG/ML, 1ML IVPush SCH (08:58)
[2021-05-19] MEDS: FUROSEMIDE 20 MG/2 ML IV SCH ×2 (08:58→17:15)
[2021-05-19] MEDS: DEXTROMETHORPHAN 30 MG/5 ML ORAL SOL PO SCH ×2 (08:59→21:10)
[2021-05-19 13:04] VITALS: BP 122/72
[2021-05-19] MEDS: RIVAROXABAN 15 MG TABLET PO SCH (17:16)
[2021-05-19 19:04] VITALS: BP 124/74
[2021-05-19] MEDS ORDERED: INSULIN GLARGINE 100 UNITS/ML, PEN SQ-INSULIN SCH (21:00)
[2021-05-19] MEDS: MELATONIN 5 MG TABLET PO SCH (21:00)
[2021-05-20 02:20] VITALS: BP 121/76
[2021-05-20] MEDS: GUAIFENESIN/COD200MG-20MG/10ML LIQUID PO SCH ×3 (06:00→16:00)
[2021-05-20] MEDS: INSULIN LISPRO 100 UNITS/ML, PEN SQ-INSULIN SCH ×3 (07:00→16:24)
[2021-05-20] MEDS: FAMOTIDINE 20 MG TABLET PO SCH (07:28)
[2021-05-20] MEDS: RIVAROXABAN 15 MG TABLET PO SCH ×2 (07:28→16:23)
[2021-05-20] MEDS: THIAMINE 100MG TABLET PO SCH (07:28)
[2021-05-20] MEDS: ASCORBIC ACID 500 MG TABLET PO SCH (07:28)
[2021-05-20] MEDS: CHOLECALCIFEROL 1,000 UNIT TABLET PO SCH (07:28)
[2021-05-20] MEDS: FUROSEMIDE 20 MG/2 ML IV SCH ×2 (07:29→16:19)
[2021-05-20] MEDS: DEXAMETHASONE 4 MG/ML, 1ML IVPush SCH (07:29)
[2021-05-20 07:33] VITALS: BP 114/71
[2021-05-20] MEDS: DEXTROMETHORPHAN 30 MG/5 ML ORAL SOL PO SCH ×2 (08:56→10:30)
[2021-05-20] MEDS: ZINC SULFATE 220 MG CAPSULE PO SCH (10:30)
[2021-05-20 13:47] LABS: ALANINE AMINOTRANSFERASE 118 U/L (12-78); ALBUMIN 2.5 g/dL (3.4-5.0); ANION GAP 9 mmol/L (5-15); C-REACTIVE PROTEIN, QUANT 0.14 mg/dL (0.02-0.49); CALCIUM 8.4 mg/dL (8.5-10.1); CHLORIDE 96 mmol/L (98-107); CREATININE 0.94 mg/dL (0.7-1.3)
[2021-05-20 13:48] LABS: BASOPHILS % (AUTO) 0 % (0-1); EOSINOPHILS % (AUTO) 0 % (1-7); LYMPHOCYTES % (AUTO) 7 % (22-44); MEAN CORPUSCULAR HEMOGLOBIN 30.2 pg (27.5-34.5); MEAN CORPUSCULAR HGB CONC 34.1 g/dL (33.2-36.2); MEAN PLATELET VOLUME 8.7 fL (7.4-10.4); MONOCYTES % (AUTO) 3 % (2-9); NEUTROPHILS % (AUTO) 90 % (42-75); PLATELET COUNT 263 x10^3/uL (130-400); RED BLOOD COUNT 5.22 x10^6/uL (4.38-5.82); RED CELL DISTRIBUTION WIDTH 12.9 % (9.4-14.8)
[2021-05-20] MEDS ORDERED: INSU100I13 SQ-INSULIN (13:50)
[2021-05-20] MEDS ORDERED: ASCO500T9 PO (13:50)
[2021-05-20] MEDS ORDERED: ZINC220C8 PO (13:50)
[2021-05-20] MEDS ORDERED: CHOL10003 PO (13:50)
[2021-05-20 14:04] LABS: ALKALINE PHOSPHATASE 107 U/L (45-117); BILIRUBIN,TOTAL 1.2 mg/dL (0.2-1.0); TOTAL PROTEIN 6.6 g/dL (6.4-8.2)
[2021-05-20 14:10] VITALS: BP 119/70
[2021-05-20] MEDS ORDERED: RIVA15TA PO (14:31)
[2021-05-20] MEDS ORDERED: RIVA20TA PO (14:32)
[2021-05-20 14:44] LABS: D-DIMER 1.31 ug/mlFEU (0.00-0.52)
[2021-05-20 14:49] LABS: HCT (SEDRATE) 46.1 % (39.2-51.8)
== END 2021-05-21 00:45 | disposition home or self-care (01) | DRG 177 ==
LOC: ED 18:30 → EDIP 18:33 → 3N 20:30 → 4EST 05-09 20:02
PROVIDERS: ADMIT Internal Medicine; ATTEND Hospitalist
PROC: XW033E5 Introduction of Remdesivir Anti-infective into Peripheral Vein, Percutaneous Approach, New Technology Group 5 (ICD-10-PCS; principal; 2021-05-07)
PROC: 5A0945A Assistance with Respiratory Ventilation, 24-96 Consecutive Hours, High Flow/Velocity Cannula (ICD-10-PCS; 2021-05-10)
DX: U07.1 COVID-19 (principal); I26.99 Other pulmonary embolism without acute cor pulmonale; J12.82 Pneumonia due to coronavirus disease 2019; J96.01 Acute respiratory failure with hypoxia; E46 Unspecified protein-calorie malnutrition; E87.1 Hypo-osmolality and hyponatremia; E11.65 Type 2 diabetes mellitus with hyperglycemia; E87.6 Hypokalemia; Z78.9 Other specified health status; Z79.4 Long term (current) use of insulin; Z68.25 Body mass index [BMI] 25.0-25.9, adult; Z79.899 Other long term (current) drug therapy
CPT/HCPCS: 36415; 36600; 71045; 71275; 80048; 80053; 80069; 82040; 82728; 82803; 82947; 82962; 83036; 83615; 83735; 83880; 84100; 84145; 85025; 85379; 85384; 85651; 86140; 93005; 96374; 96375; G0378; J0456; J0696; J1100; J1650; J3480; Q9967; J1815; J1940; J7040; J7050